=== PATIENT | male | born 1935 | race Caucasian/White ===

== ENCOUNTER → 2020-11-25 | Outpatient (CLI) | payer OTHER, SELFPAY ==
[~2020-11-25] MED LIST: ASPIRIN CHEWABL81 MG PO; BRILINTA90 MG PO; CRESTOR10 MG PO; IMDUR ER TAB 3030 MG PO; KEFLEX500 MG PO; LIPITOR TAB 1010 MG PO; LOPRESSOR 25 MG25 MG PO; MAXZIDE 37.5/21 EACH PO; MAXZIDE 75 MG-1 EACH PO; MELOXICAM15 MG PO; MYRBETRIQ25 MG PO; NITROSTAT0.4 MG SL; TRIAMTERENE-HC1 EAC3 PO; TRIPLE ANTIBIOT14 GM TP; TYLENOL W/CODEIN1 E1 PO; VITAMIN D2000 UNIT PO; VITAMIN D250000 UNIT PO; XALATAN OP SOL2.5 ML OP
== END ==
LOC: HEART 5 08:30
DX: I49.5 Sick sinus syndrome (principal); R94.39 Abnormal result of other cardiovascular function study

== ENCOUNTER → 2021-01-30 | Outpatient (CLI) | payer MEDICARE | LOC: KOH-I 08:38 | DX: Z08 Encounter for follow-up examination after completed treatment for malignant neoplasm (principal); Z85.51 Personal history of malignant neoplasm of bladder; K80.20 Calculus of gallbladder without cholecystitis without obstruction | CPT/HCPCS: 71250; 74176 ==

== ENCOUNTER → 2021-11-18 | Outpatient (CLI) | payer OTHER | LOC: KOH-I 09:15 | DX: M54.50 Low back pain, unspecified (principal); M51.16 Intervertebral disc disorders with radiculopathy, lumbar region; M48.062 Spinal stenosis, lumbar region with neurogenic claudication; M51.17 Intervertebral disc disorders with radiculopathy, lumbosacral region; M48.07 Spinal stenosis, lumbosacral region | CPT/HCPCS: 72148 ==

== ENCOUNTER 2021-12-14 13:23 | Emergency (ER) | payer OTHER ==
[2021-12-14 14:42] LABS: HEMOGLOBIN 15.6 gm/dl (14.0-17.5); RED BLOOD COUNT 5.63 M/UL (4.20-5.50)
[2021-12-14 15:01] LABS: BUN/CREATININE RATIO 16 (0-10)
[2021-12-14] MEDS ORDERED: CEPHALEXIN500 M1 PO (15:45)
== END 2021-12-14 16:00 | disposition home or self-care (01) ==
LOC: ER1 13:23
PROVIDERS: Physician Assistant
DX: M79.89 Other specified soft tissue disorders (principal)
CPT/HCPCS: 73130; 80048; 83605; 85025; 86140; 87040; 99283

== ENCOUNTER → 2022-03-11 | Outpatient (CLI) | payer OTHER ==
[~2022-03-11] MED LIST changes: +CEPHALEXIN500 M1 PO
== END ==
LOC: HEART 5 14:39
DX: I25.10 Atherosclerotic heart disease of native coronary artery without angina pectoris (principal); R06.02 Shortness of breath; I08.3 Combined rheumatic disorders of mitral, aortic and tricuspid valves
CPT/HCPCS: 93306

== ENCOUNTER 2022-03-31 17:16 | Emergency (ER) | payer OTHER ==
[2022-03-31 17:56] LABS: HEMOGLOBIN 17.3 gm/dl (14.0-17.5); RED BLOOD COUNT 5.81 M/UL (4.20-5.50); WHITE BLOOD COUNT 9.8 K/UL (4.5-11.0)
[2022-03-31 18:20] LABS: BUN/CREATININE RATIO 17 (0-10)
== END 2022-03-31 20:58 | disposition home or self-care (01) ==
LOC: ER1 17:16
PROVIDERS: Emergency Medicine
DX: S50.311A Abrasion of right elbow, initial encounter (principal); S10.91XA Abrasion of unspecified part of neck, initial encounter; S70.211A Abrasion, right hip, initial encounter; S40.211A Abrasion of right shoulder, initial encounter; S80.211A Abrasion, right knee, initial encounter; S20.411A Abrasion of right back wall of thorax, initial encounter; I25.10 Atherosclerotic heart disease of native coronary artery without angina pectoris; E78.5 Hyperlipidemia, unspecified; W01.0XXA Fall on same level from slipping, tripping and stumbling without subsequent striking against object, initial encounter
CPT/HCPCS: 70450; 71045; 71260; 72125; 73030; 73080; 73562; 80053; 81001; 82550; 82553; 84484; 85025; 90471; 90715; 93005; 96374; 99285; J2270; Q9967

== ENCOUNTER → 2022-04-09 | Outpatient (CLI) | payer OTHER | LOC: EXRD 15:16 | DX: M25.561 Pain in right knee (principal) | CPT/HCPCS: 73564 ==

== ENCOUNTER → 2022-06-15 | Outpatient (CLI) | payer OTHER | LOC: US 12:16 | DX: R42 Dizziness and giddiness (principal); I49.5 Sick sinus syndrome; I65.23 Occlusion and stenosis of bilateral carotid arteries | CPT/HCPCS: 93880 ==

== ENCOUNTER → 2022-06-25 | Outpatient (CLI) | payer OTHER ==
[2022-06-25 14:49] LABS: BUN/CREATININE RATIO 19 (0-10)
== END ==
LOC: CT 06-24 09:30
PROVIDERS: Internal Medicine Cardiovascular Disease
DX: R09.89 Other specified symptoms and signs involving the circulatory and respiratory systems (principal); I25.10 Atherosclerotic heart disease of native coronary artery without angina pectoris; R94.39 Abnormal result of other cardiovascular function study; I20.9 Angina pectoris, unspecified; I35.0 Nonrheumatic aortic (valve) stenosis; I10 Essential (primary) hypertension
CPT/HCPCS: 36415; 70498; 80048; Q9967